=== PATIENT | female | born 1985 | race Caucasian/White ===

== ENCOUNTER 2021-05-07 18:32 | Emergency (ER) | payer OTHER ==
[~2021-05-07] VITALS: Ht 152.4 cm; Wt 75.0 kg
[2021-05-07 18:45] VITALS: BP 153/101
--- NOTE | 2021-05-07 19:55 | PHYS DOC ---
Past History Past Surgical History: , Tonsillectomy (KAREN KELLY APRN) Alcohol Use: None (KAREN KELLY APRN) Adult General Chief Complaint Chief Complaint: SHORTNESS OF BREATH HPI HPI Patient is a 36-year-old female patient with no significant medical history who presents to the ED today to be evaluated for PE. Patient states she flew back from [place] 3 days ago. She was seen at urgent care today because she had "flutter" in her heart." She states urgent care requested she comes to the ED to be evaluated for PE. Patient stats they did a rapid Covid test at urgent care which was negative. She also states she got a Covid vaccine back in October. Patient is also complaining of a little pressure on the left shoulder that has subsided. Pressure was on in the morning. Patient denies any chest pain. Denies any shortness of breath. Denies any fever. She states she is being treated for UTI right now. (KAREN KELLY APRN) Review of Systems Review of Systems Constitutional: Denies fever or chills [] Eyes: Denies change in visual acuity, redness, or eye pain [] HENT: Denies nasal congestion or sore throat [] Respiratory: Denies cough or shortness of breath [] Cardiovascular: Reports flutter to the heart GI: Denies abdominal pain, nausea, vomiting, bloody stools or diarrhea [] : Denies dysuria or hematuria [] Musculoskeletal: Reports pressure to the left shoulder. Denies back pain Integument: Denies rash or skin lesions [] Neurologic: Denies headache, focal weakness or sensory changes [] All other systems were reviewed and found to be within normal limits, except as documented in this note. (KAREN KELLY APRN) Current Medications Current Medications Current Medications Medications (Trade) Dose Ordered Sig/Arslan Start Time Stop Time Status Last Admin Dose Admin Iohexol (Omnipaque 350 Mg/ml) 100 ml 1X ONCE 05/07/21 20:00 05/07/21 20:01 UNV (KAREN KELLY APRN) Allergies Allergies Allergies Coded Allergies Type Severity Reaction Last Updated Verified Penicillins Allergy Unknown 05/07/21 Yes (KAREN KELLY APRN) Physical Exam Physical Exam Constitutional: Well developed, well nourished, no acute distress, non-toxic appearance. [] HENT: Normocephalic, atraumatic, bilateral external ears normal, oropharynx moist, no oral exudates, nose normal. [] Eyes: PERRLA, EOMI, conjunctiva normal, no discharge. [] Neck: Normal range of motion, no tenderness, supple, no stridor. [] Cardiovascular:Heart rate regular rhythm, no murmur [] Lungs & Thorax: Bilateral breath sounds clear to auscultation [] Abdomen: Bowel sounds normal, soft, no tenderness, no masses, no pulsatile masses. [] Skin: Warm, dry, no erythema, no rash. [] Back: No tenderness, no CVA tenderness. [] Extremities: No tenderness, no cyanosis, no clubbing, ROM intact, no edema. [] Neurologic: Alert and oriented X 3, normal motor function, normal sensory function, no focal deficits noted. [] Psychologic: Affect normal, judgement normal, mood normal. [] (KAREN KELLY TEMPORARY STAFF ACCOUNTANT) Current Patient Data Vital Signs Vital Signs Date Time Temp Pulse Resp B/P (MAP) Pulse Ox O2 Delivery O2 Flow Rate FiO2 05/07/21 18:45 98.4 95 14 153/101 100 Room Air (KAREN KELLY TEMPORARY STAFF ACCOUNTANT) EKG EKG [] (KAREN KELLY TEMPORARY STAFF ACCOUNTANT) Radiology/Procedures Radiology/Procedures []PROCEDURE: CT ANGIOGRAPHY CHEST Examination: CT angiography chest with IV contrast HISTORY: History of shortness of breath Comparison: None available Technique: Axial CT angiographic images of chest were performed with IV contrast. Coronal and sagittal 3-D MIP reformats are performed. Exposure: One or more of the following individualized dose reduction techniques were utilized for this examination: 1. Automated exposure control 2. Adjustment of the mA and/or kV according to patient size 3. Use of iterative reconstruction technique FINDINGS: The visualized thyroid gland grossly appears unremarkable. Central airways are patent. The caliber of the aorta grossly appears unremarkable. There is no evidence of filling defect identified in the main pulmonary arterial trunk and right and left main pulmonary arteries and the visualized lobar, segmental branches of the pulmonary arteries. Mild bibasilar lung airspace opacities likely atelectasis or infiltrates. The liver demonstrates a cystic structure identified in the right lobe of the liver measuring 1.7 cm probably cyst. The spleen, adrenals grossly appears unremarkable. Gallstones identified in the gallbladder. Mild degenerative changes thoracic spine. IMPRESSION: 1. No evidence of pulmonary embolism. 2. Mild bibasilar lung airspace opacities likely atelectasis or infiltrates. 3. Cholelithiasis. Electronically signed by: Sergio Schumacher MD (05/07/2021 8:31 PM) [id number] DICTATED AND SIGNED BY: SERGIO SCHUMACHER MD DATE: 05/07/212019 CC: EMERGENCY,DEPARTMENT; KAREN KELLY APRN; PCP,NO ~MTH0 0 (KAREN KELLY APRN) Heart Score C/O Chest Pain: N/A Risk Factors: Risk Factors: DM, Current or recent (<one month) smoker, HTN, HLP, family history of CAD, obesity. Risk Scores: Risk Factors: DM, Current or recent (<one month) smoker, HTN, HLP, family history of CAD, obesity. (KAREN KELLY APRN) Course & Med Decision Making Course & Med Decision Making Pertinent Labs and Imaging studies reviewed. (See chart for details) This is a 36-year-old female patient presented to the ED today complaining of fluttering to her heart that she noted this morning. Patient flew in from [email or web address] 3 days ago, was seen at urgent care and sent to the ED for PE work-up. Also complaining of left shoulder pressure which is gone. She states she is being treated for UTI right now CTA chest negative for PE, noted for cholelithiasis. Discharged home. Follow- up with PCP. Tylenol or Motrin for pain. Recommended following up with general surgery for cholelithiasis. Labs are still pending. Patient requested to leave. (KAREN KELLY APRN) Dragon Disclaimer Dragon Disclaimer This electronic medical record was generated, in whole or in part, using a voice recognition dictation system. (KAREN KELLY APRN) Departure Departure: Impression: Primary Impression: Cholelithiasis Disposition: HOME / SELF CARE / HOMELESS Condition: STABLE Referrals: PCP,NO (PCP) SILVIA THOMAS MD follow up in one week Patient Instructions: Cholelithiasis, [id number] Additional Instructions: You were evaluated in the emergency room, you do not have a pulmonary embolism/blood clot in your chest. You were noted to have gall stones. Follow- up with a general surgeon or your primary care doctor for this. Come back to the ED at any point symptoms worsen Attending Signature Attending Signature I have reviewed the PA/PRORATION CLERK's note and plan of care. I was available for consultation as needed during the patient's visit in the emergency department. I agree with the clinical impression, plan, and disposition. (DIDIER TORREZ DO) Problem Qualifiers Primary Impression: Cholelithiasis Cholelithiasis location: gallbladder Cholecystitis presence: without cholecystitis Biliary obstruction: without biliary obstruction Qualified Codes: K80.20 - Calculus of gallbladder without cholecystitis without obstruction KAREN KELLY APRN May 07, 2021 19:54 DIDIER TORREZ DO May 08, 2021 01:59
[2021-05-07] MEDS ORDERED: IOHEXOL 350 MG/ML 100 ML VIAL. IV ONE (20:00)
--- NOTE | 2021-05-07 20:34 | RAD ---
Examination: CT angiography chest with IV contrast HISTORY: History of shortness of breath Comparison: None available Technique: Axial CT angiographic images of chest were performed with IV contrast. Coronal and sagitta l 3-D MIP reformats are performed. Exposure: One or more of the following individualized dose reduction techniques were utilized for thi s examination: 1. Automated exposure control 2. Adjustment of the mA and/or kV according to patient size 3. Use of iterative reconstruction technique FINDINGS: The visualized thyroid gland grossly appears unremarkable. Central airways are patent. The caliber of the aorta grossly appears unremarkable. There is no evidence of filling defect identified in the yash n pulmonary arterial trunk and right and left main pulmonary arteries and the visualized lobar, segme ntal branches of the pulmonary arteries. Mild bibasilar lung airspace opacities likely atelectasis or infiltrates. The liver demonstrates a cystic structure identified in the right lobe of the liver julio suring 1.7 cm probably cyst. The spleen, adrenals grossly appears unremarkable. Gallstones identified in the gallbladder. Mild degenerative changes thoracic spine. IMPRESSION: 1. No evidence of pulmonary embolism. 2. Mild bibasilar lung airspace opacities likely atelectasis or infiltrates. 3. Cholelithiasis. Electronically signed by: Sergio Schumacher MD (05/07/2021 8:31 PM) [id number]
[2021-05-07 20:41] LABS: BASO % 0 % (0-3); EOS # 0.1 x10^3/uL (0.0-0.7); EOS % 1 % (0-3); HEMATOCRIT 29.5 % (36.0-47.0); HEMOGLOBIN 10.1 g/dL (12.0-15.5); LYMPH # 2.1 x10^3/uL (1.0-4.8); LYMPH % 30 % (24-48); MEAN CORPUSCULAR HEMOGLOBIN 31 pg (25-35); MEAN CORPUSCULAR HGB CONC 34 g/dL (31-37); MEAN CORPUSCULAR VOLUME 89 fL (79-100); MONO # 0.4 x10^3/uL (0.0-1.1); MONO % 5 % (0-9); NEUT # 4.5 x10^3uL (1.8-7.7); NEUT % 64 % (31-73); PLATELET COUNT 234 x10^3/uL (140-400); RED BLOOD COUNT 3.33 x10^6/uL (3.50-5.40); RED CELL DISTRIBUTION WIDTH 12.6 % (11.5-14.5); WHITE BLOOD COUNT 7.1 x10^3/uL (4.0-11.0)
[2021-05-07 20:57] LABS: CALCIUM 7.9 mg/dL (8.5-10.1); CREATININE 0.7 mg/dL (0.6-1.0); GFR 95.2; POTASSIUM 3.4 mmol/L (3.5-5.1)
[2021-05-07 20:58] LABS: BARBITURATES NEG (NEG); BENZODIAZEPINES NEG (NEG); CANNABINOIDS NEG (NEG); COCAINE NEG (NEG); METHADONE NEG (NEG); OPIATES NEG (NEG); PHENCYCLIDINE NEG (NEG)
[2021-05-07 21:00] LABS: AMPHETAMINE/METHAMPHETAMINE NEG (NEG)
[2021-05-07 21:15] LABS: ALBUMIN 3.6 g/dL (3.4-5.0); ALBUMIN/GLOBULIN RATIO 1.2 (1.0-1.7); MAGNESIUM 1.9 mg/dL (1.8-2.4); TOTAL BILIRUBIN 0.4 mg/dL (0.2-1.0); TOTAL PROTEIN 6.6 g/dL (6.4-8.2)
== END 2021-05-07 21:00 | disposition home or self-care (01) ==
LOC: ER 18:32
DX: K80.20 Calculus of gallbladder without cholecystitis without obstruction (principal); M25.512 Pain in left shoulder; Z88.0 Allergy status to penicillin
CPT/HCPCS: 36415; 71275; 80053; 80307; 82553; 83735; 83880; 84443; 84484; 85025; 99285; Q9967